=== PATIENT | female | born 2000 | race Caucasian/White ===

== ENCOUNTER 2021-10-25 17:47 | Outpatient (CLI) | payer OTHER ==
[~2021-10-25 17:47] MED LIST: CLARITIN10 MG PO; TAMIFLU 75 MG C75 MG PO
== END 2021-10-25 19:50 | disposition home or self-care (01) ==
LOC: GENOP 17:47
DX: O30.043 Twin pregnancy, dichorionic/diamniotic, third trimester (principal); O99.891 Other specified diseases and conditions complicating pregnancy; O36.8130 Decreased fetal movements, third trimester, not applicable or unspecified; R10.2 Pelvic and perineal pain; Z3A.30 30 weeks gestation of pregnancy; Z87.891 Personal history of nicotine dependence
CPT/HCPCS: G0463

== ENCOUNTER 2021-12-07 06:38 | Inpatient (IN) | payer OTHER ==
[~2021-12-07] VITALS: Ht 167.6 cm; Wt 99.8 kg
[2021-12-07] MEDS ORDERED: PRENATABS FA T1 EACH PO (07:00)
[2021-12-07 08:09] LABS: HEMOGLOBIN 10.7 gm/dl (12.3-15.3); RED BLOOD COUNT 4.03 M/UL (4.00-5.10); WHITE BLOOD COUNT 9.2 K/UL (4.5-11.0)
[2021-12-07] MEDS ORDERED: PERCOCET 5/325 T1 EA PO (12:04)
[2021-12-07] MEDS ORDERED: HEMOCYTE324 MG PO (12:04)
[2021-12-07] MEDS ORDERED: COLACE100 MG PO (12:04)
[2021-12-07] MEDS ORDERED: IBUPROFEN800 MG PO (12:04)
[2021-12-08 05:47] LABS: HEMOGLOBIN 8.3 gm/dl (12.3-15.3)
== END 2021-12-09 15:36 | disposition home or self-care (01) | DRG 787 ==
LOC: OB 06:38
PROVIDERS: ADMIT Obstetrics & Gynecology
PROC: 3E0234Z Introduction of Serum, Toxoid and Vaccine into Muscle, Percutaneous Approach (ICD-10-PCS; 2021-12-07)
PROC: 4A1HXCZ Monitoring of Products of Conception, Cardiac Rate, External Approach (ICD-10-PCS; 2021-12-07)
PROC: 10D00Z1 Extraction of Products of Conception, Low, Open Approach (ICD-10-PCS; principal; 2021-12-07 09:00)
DX: O32.1XX1 Maternal care for breech presentation, fetus 1 (principal); D62 Acute posthemorrhagic anemia; O30.043 Twin pregnancy, dichorionic/diamniotic, third trimester; Z20.822 Contact with and (suspected) exposure to COVID-19; Z3A.36 36 weeks gestation of pregnancy; Z37.2 Twins, both liveborn; Z28.310 Unvaccinated for COVID-19; O90.81 Anemia of the puerperium; Z23 Encounter for immunization; O32.1XX2 Maternal care for breech presentation, fetus 2; O62.2 Other uterine inertia; O69.81X1 Labor and delivery complicated by cord around neck, without compression, fetus 1; O69.81X2 Labor and delivery complicated by cord around neck, without compression, fetus 2
CPT/HCPCS: 36415; 81001; 85014; 85018; 85025; 85461; 86850; 86900; 86901; 90715; C9113; J0690; J1885; J2210; J2274; J2370; J2405; J2590; J2790; J2795; J3010; J7120